=== PATIENT | female | born 2000 | race Two or more races ===

== ENCOUNTER 2021-11-26 23:12 | Emergency (ER) | payer OTHER ==
[~2021-11-26] VITALS: Ht 172.7 cm; Wt 98.0 kg
[2021-11-26 23:33] VITALS: BP 126/76
[2021-11-27 02:45] LABS: Urine Bacteria FEW /hpf (None Seen); Urine Blood Negative /uL (Negative); Urine Specific Gravity 1.008 (1.001-1.035); Urine WBC 3 /hpf (0 - 5)
== END 2021-11-27 04:58 | disposition left against medical advice (07) ==
LOC: ER 23:15
DX: S42.411A Displaced simple supracondylar fracture without intercondylar fracture of right humerus, initial encounter for closed fracture (principal); S46.911A Strain of unspecified muscle, fascia and tendon at shoulder and upper arm level, right arm, initial encounter; Z53.29 Procedure and treatment not carried out because of patient's decision for other reasons; V43.62XA Car passenger injured in collision with other type car in traffic accident, initial encounter; Y93.89 Activity, other specified; Y92.410 Unspecified street and highway as the place of occurrence of the external cause; Y99.8 Other external cause status
CPT/HCPCS: 70450; 71250; 72125; 73080; 73110; 73130; 74176; 81001

== ENCOUNTER → 2022-07-11 | Outpatient (CLI) | payer BC ==
[2022-07-11 09:06] LABS: Basophils # (auto) 0 10 ^3/uL (0-0.2); Basophils % (auto) 0.1 % (0.0-2.0); Eosinophils # (auto) 0.1 10 ^3/uL (0-0.8); Eosinophils % (auto) 1.5 % (0.0-7.0); Hematocrit 34.7 % (36.0-46.0); Hemoglobin 11.6 g/dL (12.2-16.2); Lymphocytes # (auto) 1.1 10 ^3/uL (0.4-5.4); Lymphocytes % (auto) 13.5 % (10.0-50.0); Mean Corpuscular Hemoglobin 29.3 pg (28.0-32.0); Mean Corpuscular Hgb Conc. 33.3 g/dL (32.0-36.0); Mean Corpuscular Volume 88.1 fL (80.0-100.0); Monocytes # (auto) 0.8 10 ^3/uL (0-1.3); Monocytes % (auto) 8.9 % (0.0-12.0); Neutrophils # (auto) 6.5 10 ^3/uL (1.6-8.6); Nucleated Red Blood Cells % 0.1 %; Red Blood Cells 3.94 10^6/uL (4.0-5.20); Red Cell Distribution Width 13.6 % (11.8-14.3); White Blood Cell 8.5 10^3/uL (4.4-10.8)
== END | disposition home or self-care (01) ==
LOC: LAB 08:34
PROVIDERS: ATTEND Obstetrics & Gynecology
DX: Z34.00 Encounter for supervision of normal first pregnancy, unspecified trimester (principal); Z3A.00 Weeks of gestation of pregnancy not specified
CPT/HCPCS: 36415; 82951; 83036; 85025

== ENCOUNTER 2022-07-24 13:10 | Observation (INO) | payer BC ==
[~2022-07-24] VITALS: Ht 172.7 cm; Wt 115.7 kg
== END 2022-07-24 15:30 | disposition home or self-care (01) ==
LOC: UNDOADMOB 13:10 → LDRP 13:10
PROVIDERS: ADMIT Obstetrics & Gynecology; ATTEND Obstetrics & Gynecology
DX: O24.419 Gestational diabetes mellitus in pregnancy, unspecified control (principal); Z3A.31 31 weeks gestation of pregnancy
CPT/HCPCS: 59025; 76818; 81002; 82948; 82962; 94760; G0378

== ENCOUNTER 2022-07-27 13:55 | Observation (INO) | payer BC ==
[2022-07-27] MEDS ORDERED: PREN-129 OR (14:21)
== END 2022-07-27 15:14 | disposition home or self-care (01) ==
LOC: LDRP 13:55
PROVIDERS: ADMIT Obstetrics & Gynecology; ATTEND Obstetrics & Gynecology
DX: O10.913 Unspecified pre-existing hypertension complicating pregnancy, third trimester (principal); O24.419 Gestational diabetes mellitus in pregnancy, unspecified control; Z3A.31 31 weeks gestation of pregnancy
CPT/HCPCS: 59025; 76818; 81002; 82962; G0378

== ENCOUNTER 2022-08-02 09:38 | Observation (INO) | payer BC ==
[~2022-08-02 09:38] MED LIST: PREN-129 OR
== END 2022-08-02 12:48 | disposition home or self-care (01) ==
LOC: LDRP 09:38 → UNDOADMOB 09:38 → LDRP 09:51
PROVIDERS: ADMIT Obstetrics & Gynecology; ATTEND Obstetrics & Gynecology
DX: O24.419 Gestational diabetes mellitus in pregnancy, unspecified control (principal); O10.913 Unspecified pre-existing hypertension complicating pregnancy, third trimester; Z3A.32 32 weeks gestation of pregnancy
CPT/HCPCS: 59025; 76818; 81002; 82948; 82962; 94760; G0378

== ENCOUNTER 2022-08-09 10:15 | Observation (INO) | payer BC | END 2022-08-09 12:24 | disposition home or self-care (01) | LOC: LDRP 10:15 | PROVIDERS: ADMIT Obstetrics & Gynecology; ATTEND Obstetrics & Gynecology | DX: O24.419 Gestational diabetes mellitus in pregnancy, unspecified control (principal); O10.913 Unspecified pre-existing hypertension complicating pregnancy, third trimester; Z3A.33 33 weeks gestation of pregnancy | CPT/HCPCS: 59025; 76818; 81002; 82948; 82962; 94760; G0378 ==

== ENCOUNTER 2022-08-13 10:47 | Observation (INO) | payer BC | END 2022-08-13 12:28 | disposition home or self-care (01) | LOC: LDRP 10:47 → UNDOADMOB 10:47 → LDRP 11:40 → UNDODISOB 12:28 | PROVIDERS: ADMIT Obstetrics & Gynecology; ATTEND Obstetrics & Gynecology | DX: O24.419 Gestational diabetes mellitus in pregnancy, unspecified control (principal); O36.8330 Maternal care for abnormalities of the fetal heart rate or rhythm, third trimester, not applicable or unspecified; Z3A.34 34 weeks gestation of pregnancy | CPT/HCPCS: 59025; 76818; 81002; 82948; 82962; 94760; G0378 ==

== ENCOUNTER 2022-08-16 11:05 | Observation (INO) | payer BC ==
[2022-08-16] MEDS ORDERED: PREN-129 OR (12:53)
[2022-08-16] MEDS ORDERED: METF-929 PO (12:53)
== END 2022-08-16 13:12 | disposition home or self-care (01) ==
LOC: LDRP 11:05 → UNDOADMOB 11:05 → LDRP 11:21 → UNDODISOB 13:12
PROVIDERS: ADMIT Obstetrics & Gynecology; ATTEND Obstetrics & Gynecology
DX: O24.419 Gestational diabetes mellitus in pregnancy, unspecified control (principal); O62.9 Abnormality of forces of labor, unspecified; O26.893 Other specified pregnancy related conditions, third trimester; H53.8 Other visual disturbances; Z3A.34 34 weeks gestation of pregnancy; Z79.84 Long term (current) use of oral hypoglycemic drugs
CPT/HCPCS: 59025; 76818; 81002; 82948; 82962; 94760; G0378

== ENCOUNTER 2022-08-20 11:24 | Observation (INO) | payer BC ==
[~2022-08-20 11:24] MED LIST changes: +METF-929 PO
[2022-08-20] MEDS ORDERED: PREN-96 PO (13:01)
== END 2022-08-20 13:17 | disposition home or self-care (01) ==
LOC: UNDOADMOB 11:24 → LDRP 11:24 → UNDODISOB 13:17
PROVIDERS: ADMIT Obstetrics & Gynecology; ATTEND Obstetrics & Gynecology
DX: O24.419 Gestational diabetes mellitus in pregnancy, unspecified control (principal); O26.893 Other specified pregnancy related conditions, third trimester; R10.9 Unspecified abdominal pain; O99.891 Other specified diseases and conditions complicating pregnancy; M54.9 Dorsalgia, unspecified; Z3A.35 35 weeks gestation of pregnancy
CPT/HCPCS: 59025; 76818; 81002; 82948; 94760; G0378

== ENCOUNTER 2022-08-23 11:16 | Observation (INO) | payer BC ==
[~2022-08-23 11:16] MED LIST changes: +PREN-96 PO
[2022-08-23 12:20] LABS: Basophils # (auto) 0 10 ^3/uL (0-0.2); Eosinophils # (auto) 0.1 10 ^3/uL (0-0.8); Lymphocytes # (auto) 1.1 10 ^3/uL (0.4-5.4); Monocytes # (auto) 0.7 10 ^3/uL (0-1.3); Nucleated Red Blood Cells % 0.1 %
[2022-08-23 12:22] LABS: Basophils % (auto) 0.2 % (0.0-2.0); Eosinophils % (auto) 1.3 % (0.0-7.0); Hematocrit 34.4 % (36.0-46.0); Hemoglobin 11.2 g/dL (12.2-16.2); Mean Corpuscular Hemoglobin 27.2 pg (28.0-32.0); Mean Corpuscular Hgb Conc. 32.4 g/dL (32.0-36.0); Monocytes % (auto) 8.8 % (0.0-12.0); Neutrophils % (auto) 75.7 % (37.0-80.0); Red Cell Distribution Width 14.9 % (11.8-14.3)
[2022-08-23 12:27] LABS: INR 0.93 (0.9-1.15); Partial Thromboplastin Time 28.4 sec (24.6-33.4)
[2022-08-23 12:30] LABS: Urine Bacteria FEW /hpf (None Seen); Urine Blood Negative /uL (Negative); Urine Specific Gravity 1.014 (1.001-1.035); Urine WBC 6 /hpf (0 - 5)
[2022-08-23 12:40] LABS: Potassium 3.7 mmol/L (3.5-5.1)
[2022-08-23 12:47] LABS: Albumin 2.6 g/dL (3.4-5.0); BUN/Creatinine Ratio 9.1 (10.0-20.0); Bilirubin, Total 0.3 mg/dL (0.2-1.0); Calcium 8.6 mg/dL (8.5-10.1); Total Protein 6.7 g/dL (6.4-8.2)
[2022-08-23 12:51] LABS: Alcohol, Urine < 3.0 mg/dL (0-10); Amphetamine Screen, Urine NEGATIVE (NEGATIVE); Barbiturate Scree,Urine NEGATIVE (NEGATIVE); Benzodiazephine Screen, Urine NEGATIVE (NEGATIVE); Cannabinoid Screen, Urine NEGATIVE (NEGATIVE); Cocaine Screen, Urine NEGATIVE (NEGATIVE); Opiate Scree,Urine NEGATIVE (NEGATIVE); Phencyclidine Screen, Urine NEGATIVE (NEGATIVE)
[2022-08-23 12:54] LABS: Protein, Urine 57.7 mg/dL (0.0-11.9)
[2022-08-23] MEDS ORDERED: BETAMETHASONE ACET (30mg/5ml) 5ml Vial 6mg/ml IM ONE (13:30)
== END 2022-08-23 13:47 | disposition home or self-care (01) ==
LOC: LDRP 11:16 → UNDOADMOB 11:16 → LDRP 11:21 → UNDODISOB 13:47
PROVIDERS: ADMIT Obstetrics & Gynecology; ATTEND Obstetrics & Gynecology
DX: O13.3 Gestational [pregnancy-induced] hypertension without significant proteinuria, third trimester (principal); O24.419 Gestational diabetes mellitus in pregnancy, unspecified control; O62.9 Abnormality of forces of labor, unspecified; Z3A.35 35 weeks gestation of pregnancy; Z79.899 Other long term (current) drug therapy
CPT/HCPCS: 36415; 59025; 76818; 80053; 80307; 81001; 81002; 82570; 82948; 82962; 84156; 84550; 85025; 85379; 85610; 85730; 94760; 96372; G0378; J0702

== ENCOUNTER 2022-08-24 14:15 | Observation (INO) | payer BC ==
[~2022-08-24] VITALS: Ht 172.7 cm; Wt 95.3 kg
[2022-08-24] MEDS ORDERED: BETAMETHASONE ACET (30mg/5ml) 5ml Vial 6mg/ml IM ONE (14:30)
== END 2022-08-24 16:12 | disposition home or self-care (01) ==
LOC: LDRP 14:15
PROVIDERS: ADMIT Obstetrics & Gynecology; ATTEND Obstetrics & Gynecology
DX: O13.3 Gestational [pregnancy-induced] hypertension without significant proteinuria, third trimester (principal); O24.419 Gestational diabetes mellitus in pregnancy, unspecified control; O36.8330 Maternal care for abnormalities of the fetal heart rate or rhythm, third trimester, not applicable or unspecified; Z3A.35 35 weeks gestation of pregnancy
CPT/HCPCS: 59025; 81002; 82948; 82962; 94760; 96372; G0378

== ENCOUNTER 2022-08-26 03:04 | Observation (INO) | payer BC ==
[~2022-08-26] VITALS: Ht 8 cm; Wt 113.4 kg
[2022-08-26] MEDS ORDERED: PHISODERM TOP SOLN 240ML BTL TOP PRN (05:00)
[2022-08-26] MEDS ORDERED: DERMOPLAST 60ML BOTTLE TOP PRN (05:00)
[2022-08-26] MEDS ORDERED: LIDOCAINE 2%HCL (LOCAL ANESTH.) INJ 20ML MDV IJ PRN (05:00)
[2022-08-26] MEDS ORDERED: WITCH HAZEL-GLYCERIN PAD TOP PRN (05:00)
[2022-08-26] MEDS ORDERED: LACTATED RINGER'S 1,000 ML IV SCH (05:00)
[2022-08-26] MEDS ORDERED: PROMETHAZINE HCL 25 MG/ML 1ML IV PRN (05:00)
[2022-08-26] MEDS ORDERED: BUTORPHANOL TARTRATE 2 MG/1 ML VIAL IV PRN ×2 (05:00)
[2022-08-26] MEDS ORDERED: PENICILLIN G POT 5MIL/D5 50ML 50 ML IV ONE (05:00)
[2022-08-26] MEDS ORDERED: PENICILLIN G POTASSIUM 2,500,000 UNITS in D5W 5% 50 ML IV SCH (09:00)
== END 2022-08-26 04:27 | disposition home or self-care (01) ==
LOC: LDRP 03:04
PROVIDERS: ADMIT Obstetrics & Gynecology; ATTEND Obstetrics & Gynecology
DX: O26.893 Other specified pregnancy related conditions, third trimester (principal); R07.89 Other chest pain; R06.02 Shortness of breath; Z3A.36 36 weeks gestation of pregnancy; Z79.899 Other long term (current) drug therapy
CPT/HCPCS: 59025; 81002; 82962; 94760; G0378; J7060

== ENCOUNTER 2022-08-28 11:35 | Observation (INO) | payer BC | END 2022-08-28 13:50 | disposition home or self-care (01) | LOC: LDRP 11:35 | PROVIDERS: ADMIT Obstetrics & Gynecology; ATTEND Obstetrics & Gynecology | DX: O24.419 Gestational diabetes mellitus in pregnancy, unspecified control (principal); O13.3 Gestational [pregnancy-induced] hypertension without significant proteinuria, third trimester; Z3A.36 36 weeks gestation of pregnancy | CPT/HCPCS: 59025; 76818; 81002; 82948; 82962; 94760; G0378 ==

== ENCOUNTER → 2022-08-28 | Outpatient (CLI) | payer BC ==
[2022-08-28 11:59] LABS: Basophils # (auto) 0 10 ^3/uL (0-0.2); Eosinophils # (auto) 0.1 10 ^3/uL (0-0.8); Hematocrit 36.3 % (36.0-46.0); Lymphocytes # (auto) 1.6 10 ^3/uL (0.4-5.4); Mean Corpuscular Hemoglobin 26.6 pg (28.0-32.0); Mean Corpuscular Hgb Conc. 31.8 g/dL (32.0-36.0); Monocytes # (auto) 0.9 10 ^3/uL (0-1.3); Red Blood Cells 4.35 10^6/uL (4.0-5.20); White Blood Cell 9.9 10^3/uL (4.4-10.8)
[2022-08-28 12:01] LABS: Basophils % (auto) 0.1 % (0.0-2.0); Eosinophils % (auto) 0.7 % (0.0-7.0); Hemoglobin 11.6 g/dL (12.2-16.2); Lymphocytes % (auto) 16.2 % (10.0-50.0); Mean Corpuscular Volume 83.6 fL (80.0-100.0); Monocytes % (auto) 9.4 % (0.0-12.0); Neutrophils # (auto) 7.3 10 ^3/uL (1.6-8.6); Neutrophils % (auto) 73.6 % (37.0-80.0); Nucleated Red Blood Cells % 0.2 %; Red Cell Distribution Width 14.7 % (11.8-14.3)
[2022-08-29 05:08] LABS: RPR Non Reactive (Non Reactive)
== END | disposition home or self-care (01) ==
LOC: LAB 10:55
PROVIDERS: ATTEND Obstetrics & Gynecology
DX: Z34.80 Encounter for supervision of other normal pregnancy, unspecified trimester (principal); Z3A.00 Weeks of gestation of pregnancy not specified
CPT/HCPCS: 36415; 84112; 85025; 86592

== ENCOUNTER 2022-09-02 10:00 | Inpatient (IN) | payer BC ==
[~2022-09-02] VITALS: Ht 172.7 cm; Wt 119.3 kg
[2022-09-02 11:32] LABS: Basophils # (auto) 0 10 ^3/uL (0-0.2); Eosinophils # (auto) 0.1 10 ^3/uL (0-0.8); Hemoglobin 11.8 g/dL (12.2-16.2); Lymphocytes # (auto) 1.4 10 ^3/uL (0.4-5.4); Mean Corpuscular Hemoglobin 26.7 pg (28.0-32.0); Mean Corpuscular Hgb Conc. 32.2 g/dL (32.0-36.0); Monocytes # (auto) 0.7 10 ^3/uL (0-1.3); Nucleated Red Blood Cells % 0.1 %
[2022-09-02 11:34] LABS: Basophils % (auto) 0.1 % (0.0-2.0); Eosinophils % (auto) 1.2 % (0.0-7.0); Hematocrit 36.6 % (36.0-46.0); Lymphocytes % (auto) 18.9 % (10.0-50.0); Monocytes % (auto) 9.4 % (0.0-12.0); Neutrophils # (auto) 5.4 10 ^3/uL (1.6-8.6); Neutrophils % (auto) 70.4 % (37.0-80.0); Red Blood Cells 4.41 10^6/uL (4.0-5.20); Red Cell Distribution Width 15.4 % (11.8-14.3); White Blood Cell 7.7 10^3/uL (4.4-10.8)
[2022-09-02 11:46] LABS: Albumin 2.6 g/dL (3.4-5.0); Calcium 8.8 mg/dL (8.5-10.1); Potassium 3.7 mmol/L (3.5-5.1)
[2022-09-02 11:49] LABS: Protein, Urine 30.7 mg/dL (0.0-11.9)
[2022-09-02 11:50] LABS: BUN/Creatinine Ratio 8.7 (10.0-20.0); Bilirubin, Total 0.3 mg/dL (0.2-1.0); Total Protein 6.8 g/dL (6.4-8.2); Uric Acid 7.4 mg/dL (2.6-6.0)
[2022-09-02 11:54] LABS: Urine Bacteria NONE SEEN /hpf (None Seen); Urine Blood Negative /uL (Negative); Urine Specific Gravity 1.006 (1.001-1.035); Urine WBC 2 /hpf (0 - 5)
[2022-09-02 11:54] LABS: INR 0.91 (0.9-1.15); Partial Thromboplastin Time 28.4 sec (24.6-33.4)
== END 2022-09-02 14:38 | disposition short-term general hospital (02) | DRG 833 ==
LOC: UNDOADMOB 10:00 → LDRP 10:00 → UNDOADMOB 10:19 → INTOOBSV 12:38 → LDRP 12:38 → OBSVTOIN 12:38 → UNDODISIN 14:38
PROVIDERS: ADMIT Obstetrics & Gynecology; ATTEND Obstetrics & Gynecology
DX: O24.419 Gestational diabetes mellitus in pregnancy, unspecified control (principal); O13.3 Gestational [pregnancy-induced] hypertension without significant proteinuria, third trimester; Z3A.37 37 weeks gestation of pregnancy
CPT/HCPCS: 36415; 59025; 76818; 80053; 81001; 81002; 82570; 82948; 82962; 84156; 84550; 85025; 85610; 85730; 94760; G0378

== ENCOUNTER 2024-03-11 08:47 | Observation (INO) | payer MEDICAID ==
[2024-03-18] MEDS ORDERED: ASPI1TAB20 PO (09:51)
[2024-03-18 10:12] LABS: Basophils # (auto) 0 10 ^3/uL (0-0.2); Basophils % (auto) 0.2 % (0.0-2.0); Eosinophils # (auto) 0.1 10 ^3/uL (0-0.8); Eosinophils % (auto) 1.4 % (0.0-7.0); Hematocrit 36.4 % (36.0-46.0); Hemoglobin 11.8 g/dL (12.2-16.2); Lymphocytes # (auto) 1.4 10 ^3/uL (0.4-5.4); Lymphocytes % (auto) 15.9 % (10.0-50.0); Mean Corpuscular Hemoglobin 28.6 pg (28.0-32.0); Mean Corpuscular Hgb Conc. 32.3 g/dL (32.0-36.0); Mean Corpuscular Volume 88.7 fL (80.0-100.0); Monocytes # (auto) 0.6 10 ^3/uL (0-1.3); Monocytes % (auto) 7.2 % (0.0-12.0); Neutrophils # (auto) 6.6 10 ^3/uL (1.6-8.6); Neutrophils % (auto) 75.3 % (37.0-80.0); Platelet Count (auto) 272 10^3/uL (140-450); Red Blood Cells 4.11 10^6/uL (4.0-5.20); Red Cell Distribution Width 14.1 % (11.8-14.3); White Blood Cell 8.8 10^3/uL (4.4-10.8)
[2024-03-18 10:24] LABS: Alanine Aminotransferase 22 U/L (7-40); Alkaline Phosphatase 83 U/L (46-116); Anion Gap 8 (5-15); Aspartate Aminotransferase 31 U/L (13-40); Calcium 9.8 mg/dL (8.7-10.4); Carbon Dioxide 25 mmol/L (20-31); Chloride 105 mmol/L (98-107); Glucose 94 mg/dL (74-106); Potassium 4.1 mmol/L (3.5-5.1); Sodium 138 mmol/L (136-145)
[2024-03-18 10:25] LABS: Bilirubin, Total 0.4 mg/dL (0.2-1.0); Total Protein 6.7 g/dL (5.7-8.2)
[2024-03-18 10:39] LABS: BUN/Creatinine Ratio 7.6 (10.0-20.0); Blood Urea Nitrogen < 5 mg/dL (9-23)
[2024-03-18 11:01] LABS: INR 1.02 (0.9-1.15); Partial Thromboplastin Time 27.9 SEC (24.5-34.5); Prothrombin Time 10.8 sec (9.3-11.8)
[2024-03-18 11:06] LABS: Protein, Urine 36.7 mg/dL (1-14)
[2024-03-18 11:09] LABS: Creatinine, Urine 139.32 mg/dL (30.0-125.0); Urine Protein/Creatinine Ratio 0.26
[2024-03-18 11:23] LABS: Uric Acid 6.7 mg/dL (3.1-7.8)
[2024-03-18 11:25] LABS: Urine Bacteria FEW /hpf (None Seen); Urine Blood Negative /uL (Negative); Urine Clarity Clear (Clear); Urine Color Light-Yellow (Yellow); Urine Mucus FEW (None Seen); Urine Protein, UAD TRACE (Negative); Urine Specific Gravity 1.015 (1.001-1.035); Urine Squamous Epithelial Cell FEW /hpf (<5); Urine Urobilinogen Normal (Negative); Urine WBC 1 /hpf (0 - 5); Urine pH 6.5 (5.0-9.0)
--- NOTE | 2024-03-18 19:45 | DVHDS2 ---
Physician Discharge Progress N Final Diagnosis: testing for CHTN/GDM, A1 Operations or Procedures: Operations or Procedures 23yo IUP@30.6wks, +FM, denies UCs/LOF/VB/BAÑUELOS/vision changes/RUQ pain. VSS, normotensive UA wnl NST reactive (verified by 2 RNs) FKC/PTL/PreE precautions reviewed Laboratory Tests Test 03/18/24 09:46 03/18/24 09:50 Range/Units White Blood Count 8.8 4.4-10.8 10^3/uL Red Blood Count 4.11 4.0-5.20 10^6/uL Hemoglobin 11.8 L 12.2-16.2 g/dL Hematocrit 36.4 36.0-46.0 % Mean Corpuscular Volume 88.7 80.0-100.0 fL Mean Corpuscular Hemoglobin 28.6 28.0-32.0 pg Mean Corpuscular Hemoglobin Concent 32.3 32.0-36.0 g/dL Red Cell Distribution Width 14.1 11.8-14.3 % Platelet Count 272 140-450 10^3/uL Mean Platelet Volume 8.4 6.9-10.8 fL Neutrophils (%) (Auto) 75.3 37.0-80.0 % Lymphocytes (%) (Auto) 15.9 10.0-50.0 % Monocytes (%) (Auto) 7.2 0.0-12.0 % Eosinophils (%) (Auto) 1.4 0.0-7.0 % Basophils (%) (Auto) 0.2 0.0-2.0 % Neutrophils # (Auto) 6.6 1.6-8.6 10 ^3/uL Lymphocytes # (Auto) 1.4 0.4-5.4 10 ^3/uL Monocytes # (Auto) 0.6 0-1.3 10 ^3/uL Eosinophils # (Auto) 0.1 0-0.8 10 ^3/uL Basophils # (Auto) 0 0-0.2 10 ^3/uL Nucleated Red Blood Cells 0.0 % Prothrombin Time 10.8 9.3-11.8 sec Prothrombin Time INR 1.02 0.9-1.15 Activated Partial Thromboplast Time 27.9 24.5-34.5 SEC Sodium Level 138 136-145 mmol/L Potassium Level 4.1 3.5-5.1 mmol/L Chloride Level 105 98-107 mmol/L Carbon Dioxide Level 25 20-31 mmol/L Anion Gap 8 5-15 Blood Urea Nitrogen < 5 L 9-23 mg/dL Creatinine 0.66 0.550-1.02 mg/dL Glomerular Filtration Rate Calc 125 >90 mL/min BUN/Creatinine Ratio 7.6 L 10.0-20.0 Serum Glucose 94 74-106 mg/dL Uric Acid 6.7 3.1-7.8 mg/dL Calcium Level 9.8 8.7-10.4 mg/dL Total Bilirubin 0.4 0.2-1.0 mg/dL Aspartate Amino Transferase (AST) 31 13-40 U/L Alanine Aminotransferase (ALT) 22 7-40 U/L Alkaline Phosphatase 83 46-116 U/L Total Protein 6.7 5.7-8.2 g/dL Albumin 4.0 3.2-4.8 g/dL Urine Color Light-yellow Yellow Urine Clarity Clear Clear Urine pH 6.5 5.0-9.0 Urine Specific [place] 1.015 1.001-1.035 Urine Protein Trace H Negative Urine Ketones Negative Negative Urine Blood Negative Negative /uL Urine Nitrite Negative Negative Urine Bilirubin Negative Negative Urine Urobilinogen Normal Negative mg/dL Urine Leukocyte Esterase Negative Negative /uL Urine RBC None seen 0 - 4 /hpf Urine WBC 1 0 - 5 /hpf Urine Squamous Epithelial Cells Few <5 /hpf Urine Bacteria Few H None Seen /hpf Urine Mucus Few None Seen Urine Creatinine 139.32 H 30.0-125.0 mg/dL Urine Protein/Creatinine Ratio 0.26 Urine Glucose Normal Normal mg/dL Urine Total Protein 36.7 H 1-14 mg/dL Condition on Discharge: Stable Disposition: Home Discharge Instructions: Diet: Consistent carbohydrate Activity: No Restrictions, As Tolerated Medications: see med list Follow Up Care: Specialist: f/u in 1wk Discharge Statement: "Patient was advised to return to the ER or call 911 if any headaches, dizziness, shortness of breath, chest pain, abdominal pain, bleeding, fevers, or worsening of medical condition. Patient was counseled about treatment plan, medications, possible side effects, patientverbalized understanding. All questions were answered to the best of my ability. This discharge took greater then 30 minutes in planning, reviewing documentation, counseling the patient, and discussing with other team members." [address] Mar 18, 2024 19:45
== END 2024-03-18 12:05 | disposition home or self-care (01) ==
LOC: LDRP 03-18 09:23 → UNDOADMOB 03-18 09:23 → LDRP 03-18 09:31 → UNDODISOB 03-18 12:05
PROVIDERS: ADMIT Obstetrics & Gynecology; ATTEND Obstetrics & Gynecology
DX: O24.419 Gestational diabetes mellitus in pregnancy, unspecified control (principal); O13.3 Gestational [pregnancy-induced] hypertension without significant proteinuria, third trimester; Z3A.30 30 weeks gestation of pregnancy; Z79.899 Other long term (current) drug therapy; Z86.2 Personal history of diseases of the blood and blood-forming organs and certain disorders involving the immune mechanism
CPT/HCPCS: 36415; 59025; 80053; 81001; 81002; 82570; 84156; 84550; 85025; 85610; 85730; 94760; G0378

== ENCOUNTER 2024-03-18 05:18 | Observation (INO) | payer MEDICAID ==
[~2024-03-18] VITALS: Ht 172.7 cm; Wt 117.9 kg
[2024-03-18] MEDS ORDERED: ASPI1TAB20 PO (09:51)
[2024-03-25] MEDS: InsuLIN REG 1unit/0.01ml Soln (100units/ml) SC ONE (09:58)
--- NOTE | 2024-03-26 16:05 | DVHDS2 ---
Physician Discharge Progress N Final Diagnosis: gdm,chtn Operations or Procedures: Operations or Procedures nst,sono Condition on Discharge: Good Disposition: Home Discharge Instructions: Diet: Consistent carbohydrate, Cardiac 2g Na,low cholest Activity: Light activity Medications: na Follow Up Care: Specialist: 3d Discharge Statement: "Patient was advised to return to the ER or call 911 if any headaches, dizziness, shortness of breath, chest pain, abdominal pain, bleeding, fevers, or worsening of medical condition. Patient was counseled about treatment plan, medications, possible side effects, patientverbalized understanding. All questions were answered to the best of my ability. This discharge took greater then 30 minutes in planning, reviewing documentation, counseling the patient, and discussing with other team members." JOAQUIM MOSELEY DO Mar 26, 2024 16:05
== END 2024-03-25 10:49 | disposition home or self-care (01) ==
LOC: LDRP 03-25 09:07 → EDUNIT# 03-25 09:07
PROVIDERS: ADMIT Obstetrics & Gynecology; ATTEND Obstetrics & Gynecology
DX: O13.3 Gestational [pregnancy-induced] hypertension without significant proteinuria, third trimester (principal); O24.419 Gestational diabetes mellitus in pregnancy, unspecified control; Z3A.31 31 weeks gestation of pregnancy; Z79.899 Other long term (current) drug therapy; Z98.890 Other specified postprocedural states
CPT/HCPCS: 59025; 81002; 82948; 82962; 94760; 96372; G0378; J1815

== ENCOUNTER 2024-03-25 09:26 | Observation (INO) | payer MEDICAID ==
[~2024-03-25 09:26] MED LIST changes: +ASPI1TAB20 PO
--- NOTE | 2024-03-29 10:08 | DVH ---
BIOPHYSICAL PROFILE HISTORY: GDMA2/CHTN TECHNIQUE: Multiple transabdominal real-time grayscale sonographic images through the gravid uterus of the fetus with duplex Doppler color flow and M-mode spectral analysis FINDINGS: BIOPHYSICAL PROFILE: breathing score: 2 movement score: 2 tone score: 2 Quantitative KATERYNA score: 2 (KATERYNA: 14.7 Cm.) Total score: 8/8 The fetus is in cephalic position. Posterior placenta. IMPRESSION: 1. Biophysical profile score: 8/8.
--- NOTE | 2024-03-29 11:46 | DVHDS2 ---
Physician Discharge Progress N Final Diagnosis: GDMA2 Gestational HTN Secondary Diagnosis: Encounter for surveillance Operations or Procedures: Operations or Procedures NST/BPP/KATERYNA Accucheck all WNL Commentary: Commentary PATIENT: BETH SOTELO ACCT: [id number] UNIT: [id number] : 2000 LOC: [facility] ROOM / BED: TRIAGE2 / A AGE / SEX: 23 / F ADM STATUS: ADM IN SERVICE [id number] ORDERING PHYSICIAN: DAVID TIPTON DO PROCEDURE(s): BPP - BIOPHYSICAL PROFILE REASON: GDMA2/CHTN ORDER NUMBER(s): [id number], ACCESSION NUMBER(s): [id number] BIOPHYSICAL PROFILE HISTORY: GDMA2/CHTN TECHNIQUE: Multiple transabdominal real-time grayscale sonographic images through the gravid uterus of the fetus with duplex Doppler color flow and M-mode spectral analysis FINDINGS: BIOPHYSICAL PROFILE: breathing score: 2 movement score: 2 tone score: 2 Quantitative KATERYNA score: 2 (KATERYNA: 14.7 Cm.) Total score: 8/8 The fetus is in cephalic position. Posterior placenta. IMPRESSION: 1. Biophysical profile score: 8/8. Condition on Discharge: Stable Disposition: Home Discharge Instructions: Diet: Consistent carbohydrate Activity: No Restrictions, As Tolerated Follow Up/Referral: Follow up at 9:00 am in [facility] for NST/BPP Medications: na Follow Up Care: Discharge Statement: "Patient was advised to return to the ER or call 911 if any headaches, dizziness, shortness of breath, chest pain, abdominal pain, bleeding, fevers, or worsening of medical condition. Patient was counseled about treatment plan, medications, possible side effects, patientverbalized understanding. All questions were answered to the best of my ability. This discharge took greater then 30 minutes in planning, reviewing documentation, counseling the patient, and discussing with other team members." DAVID TIPTON DO Mar 29, 2024 11:46
== END 2024-03-29 10:40 | disposition home or self-care (01) ==
LOC: UNDOADMOB 03-29 09:20 → LDRP 03-29 09:20 → UNDODISOB 03-29 10:40
PROVIDERS: ADMIT Obstetrics & Gynecology; ATTEND Obstetrics & Gynecology
DX: O24.419 Gestational diabetes mellitus in pregnancy, unspecified control (principal); O13.3 Gestational [pregnancy-induced] hypertension without significant proteinuria, third trimester; Z79.899 Other long term (current) drug therapy; Z3A.32 32 weeks gestation of pregnancy
CPT/HCPCS: 59025; 76818; 81002; 82948; 82962; 94760; G0378

== ENCOUNTER 2024-04-01 09:17 | Observation (INO) | payer MEDICAID ==
--- NOTE | 2024-04-07 09:36 | DVHDS2 ---
Physician Discharge Progress N Final Diagnosis: gdm Operations or Procedures: Operations or Procedures t,sono,nst Condition on Discharge: Good Disposition: Home Discharge Instructions: Diet: Consistent carbohydrate Activity: No Restrictions, As Tolerated Medications: na Follow Up Care: Specialist: 3d Discharge Statement: "Patient was advised to return to the ER or call 911 if any headaches, dizziness, shortness of breath, chest pain, abdominal pain, bleeding, fevers, or worsening of medical condition. Patient was counseled about treatment plan, medications, possible side effects, patientverbalized understanding. All questions were answered to the best of my ability. This discharge took greater then 30 minutes in planning, reviewing documentation, counseling the patient, and discussing with other team members." JOAQUIM MOSELEY DO Apr 07, 2024 09:36
== END 2024-04-01 12:26 | disposition home or self-care (01) ==
LOC: EDUNIT# → UNDOADMOB 09:17 → LDRP 09:17
PROVIDERS: ADMIT Obstetrics & Gynecology; ATTEND Obstetrics & Gynecology
DX: O24.419 Gestational diabetes mellitus in pregnancy, unspecified control (principal); O13.3 Gestational [pregnancy-induced] hypertension without significant proteinuria, third trimester; Z3A.32 32 weeks gestation of pregnancy; Z79.899 Other long term (current) drug therapy
CPT/HCPCS: 59025; 81002; 82948; 94760; G0378

== ENCOUNTER 2024-04-05 06:06 | Observation (INO) | payer MEDICAID ==
--- NOTE | 2024-04-05 10:46 | DVH ---
BIOPHYSICAL PROFILE HISTORY: CHTN/GDMA2 TECHNIQUE: Multiple transabdominal real-time grayscale sonographic images through the gravid uterus of the fetus with duplex Doppler color flow and M-mode spectral analysis FINDINGS: BIOPHYSICAL PROFILE: breathing score: 2 movement score: 2 tone score: 2 Quantitative KATERYNA score: 2 (KATERYNA: 12.8 Cm.) Total score: 8 The cervix not well visualized. Single live fetus in fundal presentation. heart rate 126 beats per minute. IMPRESSION: Biophysical profile score: 8
--- NOTE | 2024-04-05 12:28 | DVHDS2 ---
Physician Discharge Progress N Final Diagnosis: Chronic HTN GDMA2 Secondary Diagnosis: Encounter for surveillance Operations or Procedures: Operations or Procedures NST/BPP/KATERYNA BP check Accucheck All WNL Condition on Discharge: Stable Disposition: Home Discharge Instructions: Diet: Consistent carbohydrate Activity: No Restrictions, As Tolerated Follow Up/Referral: as scheduled. Medications: N/A Follow Up Care: Discharge Statement: "Patient was advised to return to the ER or call 911 if any headaches, dizziness, shortness of breath, chest pain, abdominal pain, bleeding, fevers, or worsening of medical condition. Patient was counseled about treatment plan, medications, possible side effects, patientverbalized understanding. All questions were answered to the best of my ability. This discharge took greater then 30 minutes in planning, reviewing documentation, counseling the patient, and discussing with other team members." DAVID TIPTON DO Apr 05, 2024 12:28
== END 2024-04-05 11:15 | disposition home or self-care (01) ==
LOC: LDRP 09:54
PROVIDERS: ADMIT Obstetrics & Gynecology; ATTEND Obstetrics & Gynecology
DX: O24.419 Gestational diabetes mellitus in pregnancy, unspecified control (principal); O13.3 Gestational [pregnancy-induced] hypertension without significant proteinuria, third trimester; Z98.890 Other specified postprocedural states; Z79.899 Other long term (current) drug therapy; Z3A.33 33 weeks gestation of pregnancy
CPT/HCPCS: 59025; 76818; 81002; 82962; 94760; G0378

== ENCOUNTER 2024-04-08 12:13 | Observation (INO) | payer MEDICAID ==
--- NOTE | 2024-04-08 13:16 | DVH ---
BIOPHYSICAL PROFILE HISTORY: CHTN TECHNIQUE: Multiple transabdominal real-time grayscale sonographic images through the gravid uterus of the fetus with duplex Doppler color flow and M-mode spectral analysis FINDINGS: BIOPHYSICAL PROFILE: breathing score: 2 movement score: 2 tone score: 2 Quantitative KATERYNA score: 2 (KATERYNA: 11.6 Cm.) Total score: 8 The cervix not well visualized. Single live fetus in cephalic presentation. heart rate 148 beats per minute. Fundal placenta without previa or abruption IMPRESSION: Biophysical profile score: 8
[2024-04-08 14:52] LABS: Basophils # (auto) 0 10 ^3/uL (0-0.2); Basophils % (auto) 0.1 % (0.0-2.0); Eosinophils # (auto) 0.1 10 ^3/uL (0-0.8); Hemoglobin 11.6 g/dL (12.2-16.2); Lymphocytes # (auto) 1.2 10 ^3/uL (0.4-5.4); Lymphocytes % (auto) 15.3 % (10.0-50.0); Mean Corpuscular Hemoglobin 28.4 pg (28.0-32.0); Mean Corpuscular Volume 85.8 fL (80.0-100.0); Monocytes # (auto) 0.7 10 ^3/uL (0-1.3); Monocytes % (auto) 9.1 % (0.0-12.0); Neutrophils # (auto) 5.9 10 ^3/uL (1.6-8.6); Neutrophils % (auto) 74.5 % (37.0-80.0); Platelet Count (auto) 266 10^3/uL (140-450); Red Blood Cells 4.08 10^6/uL (4.0-5.20); Red Cell Distribution Width 14.5 % (11.8-14.3); White Blood Cell 7.9 10^3/uL (4.4-10.8)
[2024-04-08 15:08] LABS: INR 0.97 (0.9-1.15); Partial Thromboplastin Time 27.3 SEC (24.5-34.5); Prothrombin Time 10.3 sec (9.3-11.8)
[2024-04-08 15:10] LABS: Protein, Urine 67.3 mg/dL (1-14)
[2024-04-08 15:13] LABS: Creatinine, Urine 228.67 mg/dL (30.0-125.0); Urine Protein/Creatinine Ratio 0.29
[2024-04-08 15:14] LABS: Alanine Aminotransferase 18 U/L (7-40); Albumin 3.9 g/dL (3.2-4.8); Alkaline Phosphatase 90 U/L (46-116); Anion Gap 7 (5-15); Aspartate Aminotransferase 29 U/L (13-40); Carbon Dioxide 24 mmol/L (20-31); Chloride 107 mmol/L (98-107); Glucose 90 mg/dL (74-106); Potassium 3.8 mmol/L (3.5-5.1); Sodium 138 mmol/L (136-145); Uric Acid 6.3 mg/dL (3.1-7.8)
[2024-04-08 15:15] LABS: Bilirubin, Total 0.3 mg/dL (0.2-1.0); Total Protein 6.7 g/dL (5.7-8.2)
[2024-04-08 15:24] LABS: Blood Urea Nitrogen 6 mg/dL (9-23)
[2024-04-08 15:34] LABS: Urine Bacteria FEW /hpf (None Seen); Urine Blood Negative /uL (Negative); Urine Clarity Turbid (Clear); Urine Color Yellow (Yellow); Urine Mucus FEW (None Seen); Urine Protein, UAD 1+ (Negative); Urine Specific Gravity 1.022 (1.001-1.035); Urine Squamous Epithelial Cell MOD /hpf (<5); Urine Urobilinogen 2 mg/dL (Negative); Urine WBC 3 /HPF (0-5); Urine pH 6.5 (5.0-9.0)
--- NOTE | 2024-04-08 18:13 | DVHDS2 ---
Physician Discharge Progress N Final Diagnosis: gdm,oih Operations or Procedures: Operations or Procedures nst,sono,;labs Condition on Discharge: Good Disposition: Home Discharge Instructions: Diet: Consistent carbohydrate Activity: No Restrictions, As Tolerated Medications: na Follow Up Care: Specialist: 3d Discharge Statement: "Patient was advised to return to the ER or call 911 if any headaches, dizziness, shortness of breath, chest pain, abdominal pain, bleeding, fevers, or worsening of medical condition. Patient was counseled about treatment plan, medications, possible side effects, patientverbalized understanding. All questions were answered to the best of my ability. This discharge took greater then 30 minutes in planning, reviewing documen tation, counseling the patient, and discussing with other team members." JOAQUIM MOSELEY DO Apr 08, 2024 18:13
== END 2024-04-08 14:30 | disposition home or self-care (01) ==
LOC: LDRP 12:13
PROVIDERS: ADMIT Obstetrics & Gynecology; ATTEND Obstetrics & Gynecology
DX: O24.419 Gestational diabetes mellitus in pregnancy, unspecified control (principal); O41.03X0 Oligohydramnios, third trimester, not applicable or unspecified; Z3A.33 33 weeks gestation of pregnancy; Z79.899 Other long term (current) drug therapy
CPT/HCPCS: 36415; 59025; 76818; 80053; 81001; 81002; 82570; 82948; 82962; 84156; 84550; 85025; 85610; 85730; 94760; G0378

== ENCOUNTER 2024-04-12 10:04 | Observation (INO) | payer MEDICAID ==
--- NOTE | 2024-04-12 11:01 | DVH ---
BIOPHYSICAL PROFILE HISTORY: CHTN/ GDMA2 TECHNIQUE: Multiple transabdominal real-time grayscale sonographic images through the gravid uterus of the fetus with duplex Doppler color flow and M-mode spectral analysis FINDINGS: BIOPHYSICAL PROFILE: breathing score: 2 movement score: 2 tone score: 2 Quantitative KATERYNA score: 2 (KATERYNA: 11.1 Cm.) Total score: 8 The cervix not well visualized Single live fetus in cephalic presentation. heart rate 129 beats per minute. IMPRESSION: Biophysical profile score: 8
[2024-04-12 12:17] LABS: Protein, Urine 8.2 mg/dL (1-14)
[2024-04-12 14:55] LABS: 24 Hr. Total Protein, Urine 233.7 mg/24 Hr (<149.1)
--- NOTE | 2024-04-13 15:06 | DVHDS2 ---
Physician Discharge Progress N Final Diagnosis: gdm,chtn Operations or Procedures: Operations or Procedures nst,sono Condition on Discharge: Good Disposition: Home Discharge Instructions: Diet: Consistent carbohydrate Activity: No Restrictions, As Tolerated Follow Up/Referral: Follow up on at 10:00 am for NST/BPP Medications: na Follow Up Care: Specialist: 3d Discharge Statement: "Patient was advised to return to the ER or call 911 if any headaches, dizzines s, shortness of breath, chest pain, abdominal pain, bleeding, fevers, or worsening of medical condition. Patient was counseled about treatment plan, medications, possible side effects, patientverbalized understanding. All questions were answered to the best of my ability. This discharge took greater then 30 minutes in planning, reviewing documentation, counseling the patient, and discussing with other team members." JOAQUIM MOSELEY DO Apr 13, 2024 15:06
== END 2024-04-12 11:48 | disposition home or self-care (01) ==
LOC: LDRP 10:04 → UNDOADMOB 10:04 → LDRP 10:15 → UNDODISOB 11:48
PROVIDERS: ADMIT Obstetrics & Gynecology; ATTEND Obstetrics & Gynecology
DX: O24.419 Gestational diabetes mellitus in pregnancy, unspecified control (principal); O10.913 Unspecified pre-existing hypertension complicating pregnancy, third trimester; Z98.890 Other specified postprocedural states; Z79.899 Other long term (current) drug therapy; Z3A.34 34 weeks gestation of pregnancy
CPT/HCPCS: 59025; 76818; 81002; 82948; 82962; 84156; G0378

== ENCOUNTER 2024-04-15 10:17 | Observation (INO) | payer MEDICAID ==
--- NOTE | 2024-04-15 11:36 | DVH ---
Procedure: US BIOPHYSICAL PROFILE 04/15/2024 10:59 AM Indication: GDMA2/CHTN Comparison: US BIOPHYSICAL PROFILE on DOS: 04/12/24, US BIOPHYSICAL PROFILE on DOS: 04/08/24, US BIOPHY SICAL PROFILE on DOS: 04/05/24 Technique: Sonogram of gravid uterus utilizing grayscale and color techniques. FINDINGS: Single living intrauterine gestation. Presentation: Cephalic Placenta: Posterior and fundal heart rate: 129 bpm KATERYNA: 13.8 cm, DVP: 5.2 cm Maternal cervix: Not visualized Biophysical Profile: breathing score: 2 movement score: 2 tone: 2 Quantitative KATERYNA score: 2 Total score: 8/8 IMPRESSION: 1. Single living as above. 2. Biophysical profile score: 8/8.
--- NOTE | 2024-04-15 12:38 | DVHDS2 ---
Physician Discharge Progress N Final Diagnosis: gdm Operations or Procedures: Operations or Procedures nst,sono Condition on Discharge: Good Disposition: Home Discharge Instructions: Diet: Consistent carbohydrate Activity: No Restrictions, As Tolerated Medications: na Follow Up Care: Specialist: 2d Discharge Statement: "Patient was advised to return to the ER or call 911 if any headaches, dizziness, shortness of breath, chest pain, abdominal pain, bleeding, fevers, or worsening of medical condition. Patient was counseled about treatment plan, medications, possible side effects, patientverbalized understanding. All questions were answered to the best of my ability. This discharge took greater then 30 minutes in planning, reviewing documentation, counseling the patient, and discussing with other team members." JOAQUIM MOSELEY DO Apr 15, 2024 12:38
== END 2024-04-15 12:27 | disposition home or self-care (01) ==
LOC: UNDOADMOB 10:17 → LDRP 10:17 → UNDODISOB 12:27
PROVIDERS: ADMIT Obstetrics & Gynecology; ATTEND Obstetrics & Gynecology
DX: O24.419 Gestational diabetes mellitus in pregnancy, unspecified control (principal); O16.3 Unspecified maternal hypertension, third trimester; Z3A.34 34 weeks gestation of pregnancy; Z79.899 Other long term (current) drug therapy; Z98.890 Other specified postprocedural states
CPT/HCPCS: 59025; 76818; 81002; 82948; 82962; 94760; G0378

== ENCOUNTER 2024-04-19 09:04 | Observation (INO) | payer MEDICAID ==
--- NOTE | 2024-04-19 14:37 | DVH ---
BIOPHYSICAL PROFILE HISTORY: GDMA2/CHTN Comparison: 04/15/2024 TECHNIQUE: Multiple transabdominal real-time grayscale sonographic images through the gravid uterus of the fetus with duplex Doppler color flow and M-mode spectral analysis FINDINGS: BIOPHYSICAL PROFILE: breathing score: 2 movement score: 2 tone score: 2 Quantitative KATERYNA score: 2 (KATERYNA: 14.5 Cm.) Total score: 8 The cervix is not well-visualized Single live fetus in cephalic presentation. heart rate 123 beats per minute. Posterior fundal placenta without previa or abruption IMPRESSION: Biophysical profile score: 8
--- NOTE | 2024-04-19 21:29 | DVHDS2 ---
Physician Discharge Progress N Final Diagnosis: GDMA2/CHTN Operations or Procedures: Operations or Procedures NST/BPP/KATERYNA all WNL Condition on Discharge: Stable Disposition: Home Discharge Instructions: Diet: Regular Activity: No Restrictions, As Tolerated Follow Up/Referral: as scheduled Medications: N/A Follow Up Care: Discharge Statement: "Patient was advised to return to the ER or call 911 if any headaches, dizziness, shortness of breath, chest pain, abdominal pain, bleeding, fevers, or worsening of medical condition. Patient was counseled about treatment plan, medications, possible side effects, patientverbalized understanding. All questions were answered to the best of my ability. This discharge took greater then 30 minutes in planning, reviewing documentation, counseling the patient, and discussing with other team members." DAVID TIPTON DO Apr 19, 2024 21:29
== END 2024-04-19 15:38 | disposition home or self-care (01) ==
LOC: LDRP 13:15
PROVIDERS: ADMIT Obstetrics & Gynecology; ATTEND Obstetrics & Gynecology
DX: O24.419 Gestational diabetes mellitus in pregnancy, unspecified control (principal); O16.3 Unspecified maternal hypertension, third trimester; Z98.890 Other specified postprocedural states; Z79.899 Other long term (current) drug therapy; Z3A.35 35 weeks gestation of pregnancy
CPT/HCPCS: 59025; 76818; 81002; 82948; 82962; 94760; G0378

== ENCOUNTER 2024-04-22 06:46 | Observation (INO) | payer MEDICAID ==
[2024-04-22 10:42] LABS: Basophils # (auto) 0 10 ^3/uL (0-0.2); Basophils % (auto) 0.1 % (0.0-2.0); Eosinophils # (auto) 0.1 10 ^3/uL (0-0.8); Eosinophils % (auto) 1.1 % (0.0-7.0); Hematocrit 35.1 % (36.0-46.0); Hemoglobin 11.5 g/dL (12.2-16.2); Lymphocytes # (auto) 1.3 10 ^3/uL (0.4-5.4); Mean Corpuscular Hemoglobin 27.8 pg (28.0-32.0); Mean Corpuscular Hgb Conc. 32.8 g/dL (32.0-36.0); Mean Corpuscular Volume 84.8 fL (80.0-100.0); Monocytes # (auto) 0.6 10 ^3/uL (0-1.3); Monocytes % (auto) 8.6 % (0.0-12.0); Neutrophils # (auto) 5.4 10 ^3/uL (1.6-8.6); Neutrophils % (auto) 72.2 % (37.0-80.0); Nucleated Red Blood Cells % 0.1 %; Platelet Count (auto) 294 10^3/uL (140-450); Red Blood Cells 4.14 10^6/uL (4.0-5.20); Red Cell Distribution Width 14.9 % (11.8-14.3); White Blood Cell 7.5 10^3/uL (4.4-10.8)
[2024-04-22 11:01] LABS: INR 0.96 (0.9-1.15); Partial Thromboplastin Time 27.4 SEC (24.5-34.5); Prothrombin Time 10.2 sec (9.3-11.8)
[2024-04-22 11:02] LABS: Protein, Urine 122.2 mg/dL (1-14)
[2024-04-22 11:09] LABS: Alanine Aminotransferase 18 U/L (7-40); Albumin 4.1 g/dL (3.2-4.8); Alkaline Phosphatase 99 U/L (46-116); Anion Gap 11 (5-15); Aspartate Aminotransferase 30 U/L (13-40); BUN/Creatinine Ratio 9.4 (10.0-20.0); Bilirubin, Total 0.3 mg/dL (0.2-1.0); Calcium 9.9 mg/dL (8.7-10.4); Carbon Dioxide 21 mmol/L (20-31); Chloride 104 mmol/L (98-107); Glucose 87 mg/dL (74-106); Potassium 3.6 mmol/L (3.5-5.1); Total Protein 6.7 g/dL (5.7-8.2)
[2024-04-22 11:13] LABS: Urine Protein/Creatinine Ratio 0.46
[2024-04-22 11:16] LABS: Creatinine, Urine 266.3 mg/dL (30.0-125.0)
[2024-04-22 11:23] LABS: Blood Urea Nitrogen 6 mg/dL (9-23); Sodium 136 mmol/L (136-145)
--- NOTE | 2024-04-22 12:05 | DVHDS2 ---
Physician Discharge Progress N Final Diagnosis: gdm,chtn Operations or Procedures: Operations or Procedures nst,sono Condition on Discharge: Good Disposition: Home Discharge Instructions: Diet: Consistent carbohydrate Activity: No Restrictions, As Tolerated Medications: na Follow Up Care: Specialist: kassidy martinez Discharge Statement: "Patient was advised to return to the ER or call 911 if any headaches, dizziness, shortness of breath, chest pain, abdominal pain, bleeding, fevers, or worsening of medical condition. Patient was counseled about treatment plan, medications, possible side effects, patientverbalized understanding. All questions were answered to the best of my ability. This discharge took greater then 30 minutes in planning, reviewing document ation, counseling the patient, and discussing with other team members." Visit Coding OBGYN Date of Service: Apr 22, 2024 Billing Provider: JOAQUIM MOSELEY DO DEPUTY SHERIFF GENERALIST Common Visit Codes: [id number] OBS CARE (HIGH) JOAQUIM MOSELEY DO Apr 22, 2024 12:05
--- NOTE | 2024-04-22 13:41 | DVH ---
CLINICAL HISTORY: Gestational diabetes. COMPARISON: None TECHNIQUE: biophysical profile was performed. Transabdominal sonographic images of the fetus were obtained. FINDINGS: The fetus is in cephalic position. heart rate measures 133 BPM. Amniotic fluid index measures 14.2 cm. The placenta is fundal in position. BPP profile is an overall score of 8/8, with 2/2 points for breathing, with at least one episode of breathing over a 30 second duration during a 30 minute observation, 2/2 points for movements, with 3 or more discrete body or limb movements, 2/2 points for tone, with one or more episodes of extremity extension with return to flexion, or opening and closing of hand, and 2/2 points for amniotic fluid, with at least 1 pocket of amniotic fluid that measures 2 cm in 2 perpendicular planes. IMPRESSION: BPP score of 8/8. EEN DAMIAN
== END 2024-04-22 11:46 | disposition home or self-care (01) ==
LOC: LDRP 08:48 → EDUNIT# 08:48
PROVIDERS: ADMIT Obstetrics & Gynecology; ATTEND Obstetrics & Gynecology
DX: O24.419 Gestational diabetes mellitus in pregnancy, unspecified control (principal); O13.3 Gestational [pregnancy-induced] hypertension without significant proteinuria, third trimester; O62.9 Abnormality of forces of labor, unspecified; Z3A.35 35 weeks gestation of pregnancy; Z79.899 Other long term (current) drug therapy
CPT/HCPCS: 36415; 59025; 76818; 80053; 81002; 82570; 82948; 82962; 84156; 84550; 85025; 85610; 85730; 94760; G0378

== ENCOUNTER 2024-04-26 07:21 | Observation (INO) | payer MEDICAID ==
[2024-04-26 10:23] LABS: Protein, Urine 104.4 mg/dL (1-14)
[2024-04-26 10:26] LABS: Creatinine, Urine 203.85 mg/dL (30.0-125.0); Urine Protein/Creatinine Ratio 0.51
[2024-04-26 10:27] LABS: Urine Bacteria FEW /hpf (None Seen); Urine Blood Negative /uL (Negative); Urine Color Yellow (Yellow); Urine Mucus FEW (None Seen); Urine Protein, UAD 1+ (Negative); Urine Specific Gravity 1.019 (1.001-1.035); Urine Squamous Epithelial Cell MOD /hpf (<5); Urine Urobilinogen 2 mg/dL (Negative); Urine WBC 3 /HPF (0-5); Urine pH 6.5 (5.0-9.0)
[2024-04-26 10:33] LABS: Urine Clarity Hazy (Clear)
--- NOTE | 2024-04-26 10:47 | DVH ---
BIOPHYSICAL PROFILE HISTORY: CHTN/GDMA2 TECHNIQUE: Multiple transabdominal real-time grayscale sonographic images through the gravid uterus of the fetus with duplex Doppler color flow and M-mode spectral analysis FINDINGS: BIOPHYSICAL PROFILE: breathing score: 2 movement score: 2 tone score: Quantitative KATERYNA score: 2 (KATERYNA: 12.2 Cm.) Total score: 8/8 The cervix is not visualized. Single live fetus in cephalic presentation. heart rate 137 beats per minute. Fundal placenta without previa or abruption IMPRESSION: 1. Single intrauterine with cardiac activity measuring 137 beats per minute. Biophysical pr ofile score: 8/8
[2024-04-26 10:52] LABS: Protein, Urine 9.3 mg/dL (1-14)
[2024-04-26 10:54] LABS: 24 Hr. Total Protein, Urine 748.6 mg/24 Hr (<149.1)
--- NOTE | 2024-04-26 11:05 | DVHDS2 ---
Physician Discharge Progress N Final Diagnosis: IUP 36 wk, CHTN, GDMA2 Secondary Diagnosis: NST/BPP/KATERYNA Operations or Procedures: Operations or Procedures NST/BPP/ KATERYNA Accucheck all WNL Mild contractions, not symptomatic, declined SVE NOT in labor Commentary: Commentary 24h urine protein 748 mg BPs all NORMAL, asymptomatic Condition on Discharge: Guarded Disposition: Home Discharge Instructions: Diet: Regular Activity: No Restrictions, As Tolerated Follow Up/Referral: 2x/wk NST/BPP/KATERYNA once week Dr. Pearce F/U Medications: No new meds Follow Up Care: Discharge Statement: "Patient was advised to return to the ER or call 911 if any headaches, dizziness, shortness of breath, chest pain, abdominal pain, bleeding, fevers, or worsening of medical condition. Patient was counseled about treatment plan, medications, possible side effects, patientverbalized understanding. All questions were answered to the best of my ability. This discharge took greater then 30 minutes in planning, reviewing documentation, counseling the patient, and discussing with other team members." Visit Coding OBGYN Date of Service: Apr 26, 2024 Billing Provider: DAVID TIPTON DO PERSONALIZATION SPECIALIST Common Visit Codes: 12306-CMM/OBS SAME DATE (HIGH) PERSONALIZATION SPECIALIST Procedure Codes: 81134-70- NON-STRESS TEST DAVID TIPTON DO Apr 26, 2024 11:05
== END 2024-04-26 11:05 | disposition home or self-care (01) ==
LOC: LDRP 08:18 → UNDOADMOB 08:18 → LDRP 08:26 → UNDODISOB 11:05
PROVIDERS: ADMIT Obstetrics & Gynecology; ATTEND Obstetrics & Gynecology
DX: O13.3 Gestational [pregnancy-induced] hypertension without significant proteinuria, third trimester (principal); O24.419 Gestational diabetes mellitus in pregnancy, unspecified control; Z3A.36 36 weeks gestation of pregnancy; Z98.890 Other specified postprocedural states; Z79.899 Other long term (current) drug therapy
CPT/HCPCS: 76818; 81001; 82570; 84156; G0378

== ENCOUNTER 2024-04-30 06:53 | Observation (INO) | payer MEDICAID ==
--- NOTE | 2024-04-30 12:19 | DVH ---
BIOPHYSICAL PROFILE HISTORY: GDMA2, chronic HTN TECHNIQUE: Multiple transabdominal real-time grayscale sonographic images through the gravid uterus of the fetus with duplex Doppler color flow and M-mode spectral analysis FINDINGS: BIOPHYSICAL PROFILE: breathing score: 2 movement score: 2 tone score: 2 Quantitative KATERYNA score: 2 (KATERYNA: 11 Cm.) Total score: 8 The cervix was not seen Single live fetus in cephalic presentation. heart rate 154 beats per minute. Grade II posterior fundal placenta without previa or abruption IMPRESSION: Biophysical profile score: 8/8
[2024-04-30 12:45] LABS: Urine Bacteria FEW /hpf (None Seen); Urine Blood Negative /uL (Negative); Urine Clarity Clear (Clear); Urine Color Light-Yellow (Yellow); Urine Protein, UAD Negative (Negative); Urine Specific Gravity 1.006 (1.001-1.035); Urine Squamous Epithelial Cell FEW /hpf (<5); Urine Urobilinogen Normal (Negative); Urine WBC 1 /HPF (0-5)
[2024-04-30 12:53] LABS: Protein, Urine 6.3 mg/dL (1-14)
[2024-04-30 12:56] LABS: Creatinine, Urine 35.94 mg/dL (30.0-125.0); Urine Protein/Creatinine Ratio 0.18
--- NOTE | 2024-04-30 13:24 | DVHDS2 ---
Physician Discharge Progress N Final Diagnosis: gdm,chtn Operations or Procedures: Operations or Procedures nst,sono 36+wks Condition on Discharge: Good Disposition: Home Discharge Instructions: Diet: Consistent carbohydrate Activity: No Restrictions, As Tolerated Medications: na Follow Up Care: Specialist: 3d Discharge Statement: "Patient was advised to return to the ER or call 911 if any headaches, dizziness, shortness of breath, chest pain, abdominal pain, bleeding, fevers, or worsening of medical condition. Patient was counseled about treatment plan, medications, possible side effects, patientverbalized understanding. All questions were answered to the best of my ability. This discharge took greater then 30 minutes in planning, reviewing docu mentation, counseling the patient, and discussing with other team members." Visit Coding OBGYN Date of Service: Apr 30, 2024 Billing Provider: JOAQUIM MOSELEY DO LACTATION SPECIALIST Common Visit Codes: [id number] OBS CARE (HIGH) LACTATION SPECIALIST Procedure Codes: 76466-77- NON-STRESS TEST JOAQUIM MOSELEY DO Apr 30, 2024 13:24
[2024-04-30 13:35] LABS: Basophils # (auto) 0 10 ^3/uL (0-0.2); Basophils % (auto) 0.2 % (0.0-2.0); Eosinophils # (auto) 0.1 10 ^3/uL (0-0.8); Eosinophils % (auto) 1.1 % (0.0-7.0); Hemoglobin 12.1 g/dL (12.2-16.2); Lymphocytes # (auto) 1.6 10 ^3/uL (0.4-5.4); Lymphocytes % (auto) 20.2 % (10.0-50.0); Mean Corpuscular Hemoglobin 27.3 pg (28.0-32.0); Mean Corpuscular Hgb Conc. 32.6 g/dL (32.0-36.0); Mean Corpuscular Volume 83.6 fL (80.0-100.0); Monocytes # (auto) 0.8 10 ^3/uL (0-1.3); Monocytes % (auto) 9.9 % (0.0-12.0); Neutrophils # (auto) 5.5 10 ^3/uL (1.6-8.6); Neutrophils % (auto) 68.6 % (37.0-80.0); Nucleated Red Blood Cells % 0.4 %; Platelet Count (auto) 280 10^3/uL (140-450); Red Blood Cells 4.42 10^6/uL (4.0-5.20); Red Cell Distribution Width 14.8 % (11.8-14.3); White Blood Cell 8.1 10^3/uL (4.4-10.8)
[2024-04-30 13:46] LABS: Alanine Aminotransferase 20 U/L (7-40); Albumin 4.3 g/dL (3.2-4.8); Alkaline Phosphatase 111 U/L (46-116); Anion Gap 9 (5-15); Aspartate Aminotransferase 34 U/L (13-40); Bilirubin, Total 0.5 mg/dL (0.2-1.0); Calcium 10.1 mg/dL (8.7-10.4); Carbon Dioxide 23 mmol/L (20-31); Chloride 104 mmol/L (98-107); Glucose 78 mg/dL (74-106); Potassium 4.3 mmol/L (3.5-5.1); Total Protein 6.8 g/dL (5.7-8.2); Uric Acid 7.4 mg/dL (3.1-7.8)
[2024-04-30 13:47] LABS: Blood Urea Nitrogen 8 mg/dL (9-23); Sodium 136 mmol/L (136-145)
[2024-04-30 14:04] LABS: Partial Thromboplastin Time 28.7 SEC (24.5-34.5); Prothrombin Time 10.6 sec (9.3-11.8)
== END 2024-04-30 13:17 | disposition home or self-care (01) ==
LOC: LDRP 11:27
PROVIDERS: ADMIT Obstetrics & Gynecology; ATTEND Obstetrics & Gynecology
DX: O24.419 Gestational diabetes mellitus in pregnancy, unspecified control (principal); O16.3 Unspecified maternal hypertension, third trimester; Z3A.36 36 weeks gestation of pregnancy; Z79.899 Other long term (current) drug therapy
CPT/HCPCS: 36415; 59025; 76818; 80053; 81001; 81002; 82570; 84156; 84550; 85025; 85610; 85730; 94760; G0378

== ENCOUNTER 2024-05-04 12:37 | Observation (INO) | payer MEDICAID ==
--- NOTE | 2024-05-04 13:34 | DVH ---
BIOPHYSICAL PROFILE HISTORY: Chronic hypertension, GDMA2 Comparison Study: None TECHNIQUE: Multiple real-time grayscale sonographic images through the gravid uterus of the fetus wi th duplex Doppler color flow and M-mode spectral analysis FINDINGS: BIOPHYSICAL PROFILE: breathing score: 2 movement score: 2 tone score: 2 Quantitative KATERYNA score: 2 (KATERYNA: 11.4 Cm.) Total score: 8 The cervix was not visualized Single live fetus in cephalic presentation. heart rate 127 beats per minute. Fundal placenta without previa or abruption IMPRESSION: Biophysical profile score: 8
--- NOTE | 2024-05-04 19:53 | DVHDS2 ---
Physician Discharge Progress N Final Diagnosis: testing for CHTN, GDMA2 Operations or Procedures: Operations or Procedures 23yo IUP@37.3wks, +FM, denies UCs/LOF/VB/BAÑUELOS/vision changes/RUQ pain. VSS, normotensive NST reactive FKC/PreE/labor precautions reviewed. Laboratory Tests Test 05/04/24 13:42 Range/Units POC Glucose 96 70-106 mg/dl Other Interventions Other Interventions [place] [address] Ph: [phone] DIAGNOSTIC IMAGING Diagnostic Imaging Report : [id number] Signed PATIENT: BETH SOTELO ACCT: [id number] UNIT: [id number] : 2000 LOC: [facility] ROOM / BED: TRIAGE1 / A AGE / SEX: 23 / F ADM STATUS: ADM IN SERVICE 1250 ORDERING PHYSICIAN: FAITH STREET CNM PROCEDURE(s): BPP - BIOPHYSICAL PROFILE REASON: Chronic hypertension, GDMA2 ORDER NUMBER(s): [id number], ACCESSION NUMBER(s): [id number] BIOPHYSICAL PROFILE HISTORY: Chronic hypertension, GDMA2 Comparison Study: None TECHNIQUE: Multiple real-time grayscale sonographic images through the gravid uterus of the fetus with duplex Doppler color flow and M-mode spectral analysis FINDINGS: BIOPHYSICAL PROFILE: breathing score: 2 movement score: 2 tone score: 2 Quantitative KATERYNA score: 2 (KATERYNA: 11.4 Cm.) Total score: 8 The cervix was not visualized Single live fetus in cephalic presentation. heart rate 127 beats per minute. Fundal placenta without previa or abruption IMPRESSION: Biophysical profile score: 8 ATED BY: ZAN HERNANDEZ MD DICTATED DATE/TIME: 05/04/241331 SIGNED BY: ZAN HERNANDEZ MD SIGNED DATE/TIME: 05/04/241331 CC: Condition on Discharge: Stable Disposition: Home Discharge Instructions: Diet: See Comment Diet comment: Continue ADA diet Activity: No Restrictions, As Tolerated Follow Up/Referral: Please return on Friday for scheduled IOL Medications: see med list Follow Up Care: Specialist: f/u for scheduled IOL on 05/07/24 Discharge Statement: "Patient was advised to return to the ER or call 911 if any headaches, dizzi ness, shortness of breath, chest pain, abdominal pain, bleeding, fevers, or worsening of medical condition. Patient was counseled about treatment plan, medications, possible side effects, patientverbalized understanding. All questions were answered to the best of my ability. This discharge took greater then 30 minutes in planning, reviewing documentation, counseling the patient, and discussing with other team members." Visit Coding OBGYN Date of Service: May 04, 2024 Billing Provider: FAITH STREET CNM H[employer] LANGUAGE TUTOR Common Visit Codes: 34398-XUMIERG OBS CARE (HIGH) H[employer] LANGUAGE TUTOR Procedure Codes: 83295-75- NON-STRESS TEST FAITH STREET CNM May 04, 2024 19:53
== END 2024-05-04 14:09 | disposition home or self-care (01) ==
LOC: UNDOADMOB 12:37 → LDRP 12:37
PROVIDERS: ADMIT Obstetrics & Gynecology; ATTEND Obstetrics & Gynecology
DX: O16.3 Unspecified maternal hypertension, third trimester (principal); O24.419 Gestational diabetes mellitus in pregnancy, unspecified control; Z98.890 Other specified postprocedural states; Z79.899 Other long term (current) drug therapy; Z3A.37 37 weeks gestation of pregnancy
CPT/HCPCS: 76818; 82962; G0378; 59025; 81002; 94762

== ENCOUNTER 2024-05-06 13:36 | Observation (INO) | payer MEDICAID ==
[2024-05-06 14:32] LABS: Fern Testing Negative
--- NOTE | 2024-05-06 15:46 | DVHDS2 ---
Physician Discharge Progress N Final Diagnosis: 37wks rom ruled out Operations or Procedures: Operations or Procedures nst 37wks,sono Condition on Discharge: Good Disposition: Home Discharge Instructions: Diet: Regular Activity: No Restrictions, As Tolerated Medications: na Follow Up Care: Specialist: 1d Discharge Statement: "Patient was advised to return to the ER or call 911 if any headaches, dizziness, shortness of breath, chest pain, abdominal pain, bleeding, fevers, or worsening of medical condition. Patient was counseled about treatment plan, medications, possible side effects, patientverbalized understanding. All questions were answered to the best of my ability. This discharge took greater then 30 minutes in planning, reviewing documentati on, counseling the patient, and discussing with other team members." Visit Coding OBGYN Date of Service: May 06, 2024 Billing Provider: JOAQUIM MOSELEY DO LAN/WAN ENGINEER Common Visit Codes: 47066-MRY/OBS DISCH DAY >30MIN LAN/WAN ENGINEER Procedure Codes: 91510-59- NON-STRESS TEST JOAQUIM MOSELEY DO May 06, 2024 15:46
== END 2024-05-06 15:02 | disposition home or self-care (01) ==
LOC: LDRP 13:36
PROVIDERS: ADMIT Obstetrics & Gynecology; ATTEND Obstetrics & Gynecology
DX: O62.9 Abnormality of forces of labor, unspecified (principal); Z3A.37 37 weeks gestation of pregnancy; Z79.899 Other long term (current) drug therapy; Z98.890 Other specified postprocedural states
CPT/HCPCS: 59025; 81002; 82962; 84112; 94760; G0378; Q0114

== ENCOUNTER 2024-05-07 07:38 | Inpatient (IN) | payer MEDICAID ==
[~2024-05-07] VITALS: Ht 172.7 cm; Wt 117.9 kg
[2024-05-07] MEDS ORDERED: NALBUPHINE HCL 10 MG/1ml INJECTION IM PRN (22:00)
[2024-05-07] MEDS ORDERED: LIDOCAINE 2%HCL (LOCAL ANESTH.) INJ 20ML MDV IJ PRN (22:00)
[2024-05-07] MEDS ORDERED: ACCU-CHEK COMFORT CURVE STRIP VI SCH (22:00)
[2024-05-07] MEDS ORDERED: NALBUPHINE HCL 10 MG/1ml INJECTION IV PRN (22:00)
[2024-05-07 22:41] LABS: Basophils # (auto) 0 10 ^3/uL (0-0.2); Basophils % (auto) 0.2 % (0.0-2.0); Eosinophils # (auto) 0.1 10 ^3/uL (0-0.8); Hematocrit 34.5 % (36.0-46.0); Hemoglobin 11.6 g/dL (12.2-16.2); Lymphocytes # (auto) 1.6 10 ^3/uL (0.4-5.4); Lymphocytes % (auto) 20.8 % (10.0-50.0); Mean Corpuscular Hemoglobin 28.1 pg (28.0-32.0); Mean Corpuscular Hgb Conc. 33.6 g/dL (32.0-36.0); Mean Corpuscular Volume 83.7 fL (80.0-100.0); Monocytes # (auto) 0.7 10 ^3/uL (0-1.3); Monocytes % (auto) 8.8 % (0.0-12.0); Neutrophils # (auto) 5.4 10 ^3/uL (1.6-8.6); Neutrophils % (auto) 69.2 % (37.0-80.0); Nucleated Red Blood Cells % 0.1 %; Platelet Count (auto) 297 10^3/uL (140-450); Red Blood Cells 4.12 10^6/uL (4.0-5.20); Red Cell Distribution Width 15.4 % (11.8-14.3); White Blood Cell 7.8 10^3/uL (4.4-10.8)
[2024-05-07 22:56] LABS: Protein, Urine 24.4 mg/dL (1-14)
[2024-05-07 22:58] LABS: Barbiturate Scree,Urine Neg (NEGATIVE); Benzodiazephine Screen, Urine Neg (NEGATIVE); Cannabinoid Screen, Urine Neg (NEGATIVE); Cocaine Screen, Urine Neg (NEGATIVE); Creatinine, Urine 68.43 mg/dL (30.0-125.0); Opiate Scree,Urine Neg (NEGATIVE); Phencyclidine Screen, Urine Neg (NEGATIVE); Urine Protein/Creatinine Ratio 0.36
[2024-05-07 23:00] LABS: Alanine Aminotransferase 19 U/L (7-40); Albumin 4.3 g/dL (3.2-4.8); Anion Gap 12 (5-15); Aspartate Aminotransferase 33 U/L (13-40); BUN/Creatinine Ratio 12.7 (10.0-20.0); Calcium 9.5 mg/dL (8.7-10.4); Carbon Dioxide 21 mmol/L (20-31); Chloride 103 mmol/L (98-107); Glucose 93 mg/dL (74-106); Potassium 3.6 mmol/L (3.5-5.1); Uric Acid 7.1 mg/dL (3.1-7.8)
[2024-05-07 23:00] LABS: Urine Bacteria FEW /hpf (None Seen); Urine Blood Negative /uL (Negative); Urine Clarity Clear (Clear); Urine Color Light-Yellow (Yellow); Urine Protein, UAD TRACE (Negative); Urine Specific Gravity 1.009 (1.001-1.035); Urine Squamous Epithelial Cell FEW /hpf (<5); Urine Urobilinogen 2 mg/dL (Negative); Urine WBC 1 /HPF (0-5); Urine pH 6.5 (5.0-9.0)
[2024-05-07 23:01] LABS: Bilirubin, Total 0.3 mg/dL (0.2-1.0); INR 0.97 (0.9-1.15); Partial Thromboplastin Time 27.6 SEC (24.5-34.5); Prothrombin Time 10.3 sec (9.3-11.8); Total Protein 6.9 g/dL (5.7-8.2)
[2024-05-07 23:05] LABS: Blood Urea Nitrogen 8 mg/dL (9-23); Sodium 136 mmol/L (136-145)
[2024-05-07 23:06] LABS: Alkaline Phosphatase 117 U/L (46-116)
[2024-05-07 23:07] LABS: Amphetamine Screen, Urine Neg (NEGATIVE)
[2024-05-07 23:59] VITALS: BP 109/60; PULSE 108; RESP 16; TEMP 98.5; O2SAT 97
[2024-05-08] MEDS: miSOPROStol 50 MCG per PRE-CUT 1/2 TAB PO PRN (02:19)
[2024-05-08] MEDS: PHISODERM TOP SOLN 240ML BTL TOP PRN (02:21)
[2024-05-08] MEDS: DERMOPLAST 60ML BOTTLE TOP PRN (02:21)
[2024-05-08] MEDS: WITCH HAZEL-GLYCERIN PAD TOP PRN (02:21)
--- NOTE | 2024-05-08 02:49 | DVHHP ---
ADMIT DATE: 05/07/2024 CHIEF COMPLAINT: Here for induction of labor. HISTORY OF PRESENT ILLNESS: The patient is a 23-year-old 2, para 1, with gestational age of 38+ weeks, admitted for induction of labor secondary to chronic hypertension and GDMA2. The patient denies having any rupture of membrane or vaginal bleeding. PAST MEDICAL HISTORY: Hypertension. PAST SURGICAL HISTORY: None. SOCIAL HISTORY: None. FAMILY HISTORY: None. OBSTETRIC AND GYNECOLOGIC HISTORY: One normal vaginal delivery. Blood type A positive, GBS unknown, rubella immune. REVIEW OF SYSTEMS: Consistent with HPI. PHYSICAL EXAMINATION: VITAL SIGNS: Stable, afebrile. HEENT: Within normal limits. CARDIOVASCULAR: Regular rate and rhythm. LUNGS: Clear to auscultation. BREASTS: Symmetrical. No masses. ABDOMEN: Gravid. Positive heart. PELVIC: 1 cm, 50%, -3. EXTREMITIES: No clubbing, cyanosis or edema. IMPRESSION: * Intrauterine at 38+ weeks, with chronic hypertension. * Gestational diabetes mellitus A2. * Morbid obesity. PLAN: Induction of labor. We will proceed with Cytotec, cover for GBS. Expectant vaginal delivery. The patient will be managed at 7:[address] Larry, on-call physician. Sandra Pearce DO MZ/HEM TID: [id number] RECEIPT: [id number]
[2024-05-08] MEDS ORDERED: LACT. RINGERS/OXYTOCIN 20UNITS 500 ML IV ONE (11:30)
[2024-05-08] MEDS ORDERED: ePHEDrine SULFATE 50 MG/ML AMP IV ONE (12:30)
[2024-05-08] MEDS ORDERED: LACTATED RINGER'S 500 ML IV ONE (12:30)
[2024-05-08] MEDS: LACTATED RINGER'S 1,000 ML IV SCH (12:36)
[2024-05-08] MEDS: fentaNYL CITRATE 100 MCG/2 ML VL IV ONE (15:10)
[2024-05-08] MEDS: ROPIVACAINE HCL 200 ML ONE (15:20)
--- NOTE | 2024-05-08 15:42 | EPIDURAL ---
Anesthesia Procedural Note - Epidural Informed consent obtained?: Yes Medication Administered: Fentanyl 100 mcg Sterile prept drape: Yes Spinal level of insertion: L4-L5 Test dose of lidocaine & Epine: Negative Infusion started: Yes Start time: 14:51 End time: 15:12 Procedure description Procedure description: Called for labor analgesia. Patient is at 38 weeks, requesting epidural prior to initiation of pitocin augmentation. Chart reviewed, history taken and patient examined at 1451 (BP 124/65 HR 90 spO2 98). Informed consent for CSE obtained. Sitting position, sterile prep and drape. Time out done at 1453. Epidural needle placed with LISS ay 7cm. 25G pencil point spinal needle +clear CSF. 15mcg fentanyl given IT at 1455 (BP 131/77 HR 94 spO2 99). Epidural catheter secured at 13cm. Aspiration and test dose (3cc 1.5% lido with epi) negative at 1438 (BP 131/80 HR 88 spO2 98). 85mcg fentanyl given via epidural catheter at 1501 (BP 125/76 HR 88 spO2 99). Patient reports good pain relief. 0.2% ropivacaine infusion started at 1512 (BP 127/82 HR 85 spO2 99). Will follow as needed. ELEUTERIO BETANCUR MD May 08, 2024 15:42
[2024-05-08] MEDS: LACT. RINGERS/OXYTOCIN 20UNITS 1,000 ML IV SCH (16:04)
[2024-05-08] MEDS ORDERED: ONDANSETRON HCL 4 MG/2 ML VIAL IV PRN (18:15)
[2024-05-09] MEDS ORDERED: LIDOCAINE 2%HCL (LOCAL ANESTH.) INJ 20ML MDV ONE (06:37)
[2024-05-09] MEDS: LACT. RINGERS/OXYTOCIN 20UNITS 500 ML IV ONE (06:44)
--- NOTE | 2024-05-09 07:08 | LDN2 ---
Labor and Delivery Note Date 05/09/24 Age 23 2 Para 1 AB 0 EDC 38+ wks EGA 38+ we induced her Diagnosis HTN , GDMA2 Vaginal Delivery: VTX Vacuum Assisted: No Placenta: Spontaneous (3 vessel intact) Sex: Male Weight pnd Apgars 8/9 Nuchal Cord Transected: Yes (loose x1) Amniotic Fluid: Clear Anesthesia Epidural Chris CRISOSTOMO Episiotomy: No Extension: Yes (1st degree ant and posterior) Repaired with 2-0 chromic EBL 450cc Labs Blood Bank 05/07/24 22:23: Blood Type A POSITIVE Conditions guarded Cloud Operations Engineer none present JITENDRA ORR DO May 09, 2024 07:08
[2024-05-09] MEDS ORDERED: ONDANSETRON HCL 4 MG/2 ML VIAL IV PRN (10:00)
[2024-05-09] MEDS ORDERED: ACETAMINOPHEN 325 MG TAB PO PRN (10:00)
[2024-05-09] MEDS: IBUPROFEN 600 MG TAB PO PRN (10:43)
[2024-05-09 15:00] VITALS: BP 132/71; PULSE 100; RESP 17; TEMP 98.1; O2SAT 98
[2024-05-09 19:00] VITALS: BP 120/69; PULSE 95; RESP 16; TEMP 97.7; O2SAT 96
[2024-05-09] MEDS: ACCU-CHEK COMFORT CURVE STRIP VI SCH (22:00)
[2024-05-09] MEDS: DOCUSATE SOD 100 MG CAP PO SCH (22:07)
[2024-05-09 23:00] VITALS: BP 113/65; PULSE 94; RESP 17; TEMP 98.2; O2SAT 97
[2024-05-10 03:00] VITALS: BP 129/72; PULSE 85; RESP 18; TEMP 98.1; O2SAT 96
--- NOTE | 2024-05-10 05:45 | DVHPN2 ---
Chief Complaints Patient reports: No new complaints, Feels better, Other (minimal lochia , BL sugars controlled , BP stable) Nursing reports: No new complaints, No abdominal pain, No chest pain, No dizziness, No cough Objective Vitals Vital Signs Date Time Temp Pulse Resp B/P (MAP) Pulse Ox O2 Delivery O2 Flow Rate FiO2 05/10/24 03:00 98.1 85 18 129/72 (91) 96 98.1 05/09/24 19:00 Room Air Medications Current Medications Medications (Trade) Dose Ordered Sig/Suzanna Route PRN Reason Start Time Stop Time Status Last Admin Acetaminophen (Tylenol Tablet) 650 mg Q4HP PRN PO MILD PAIN (1-3 PAIN SCALE) 05/09/24 10:00 Diagnostic Test (Pha) (Accu-Chek Comfort Curve T) 1 strip ACHS 05/09/24 22:00 05/09/24 22:00 Docusate Sodium (Colace Capsule) 200 mg HS PO 05/09/24 22:00 05/09/24 22:07 Ibuprofen (Motrin Tablet) 600 mg Q6HP PRN PO MODERATE PAIN (4-6 PAIN SCALE) 05/09/24 10:00 05/09/24 19:16 Ondansetron HCl (Zofran) 4 mg Q4HP PRN IV NAUSEA / VOMITING 05/09/24 10:00 General: Normal Head/Eyes: Normal Neck: Normal Lungs: Normal Cardiovascular: Normal Abdominal: Normal (Uterus 15 week size) Musculoskeletal: Normal Extremities: Normal Neurological: Normal Studies Laboratory Tests 05/07/24 22:23 Test 05/07/24 22:23 Range/Units Serum Glucose 93 74-106 mg/dL Ass/Plan Assessment Post day one GDM HTN Plan See DC summary , See DC orders JITENDRA ORR DO May 10, 2024 05:44
--- NOTE | 2024-05-10 05:50 | DVHDS2 ---
Discharge Summary Discharge Summary Date of Admission: May 07, 2024 Date of Discharge: May 10, 2024 Discharge Diagnosis: GDM HTN induction Procedures none Brief History: GDM HTN induction controlled Hospital Course un eventful induction and Physical exam on Discharge AAO x3, Afebrile VSS, Sugars controlled BP controlled, LCTA , HRRR, ABD soft + BS uterus 15 week size firm, Ext no pain or edema Discharge Disposition: Home Discharge Instructions routine DM HTN post Instructions given. Medications resume home meds and diet Follow up 2 weeks or prn with primary EARLY INTERVENTION SPECIALIST Discharge Care Plan Instructions See pt D/C handouts Risk factors Proper handwashing Establish goals see dc orders Visit Coding OBGYN Date of Service: May 10, 2024 Billing Provider: JITENDRA ORR DO EARLY INTERVENTION SPECIALIST Common Visit Codes: PROCEDURE ONLY EARLY INTERVENTION SPECIALIST Procedure Codes: 57986-OBW DELIVERY ONLY JITENDRA ORR DO May 10, 2024 05:50
[2024-05-10 07:22] VITALS: BP 121/71; PULSE 79; RESP 18; TEMP 98.3; O2SAT 96
[2024-05-11 04:07] LABS: RPR Non Reactive (Non Reactive)
== END 2024-05-10 11:58 | disposition home or self-care (01) | DRG 560 ==
LOC: PREOBSVTOIN 07:39 → LDRP 21:50
PROVIDERS: ADMIT Obstetrics & Gynecology; ATTEND Obstetrics & Gynecology
PROC: 3E0R3BZ Introduction of Anesthetic Agent into Spinal Canal, Percutaneous Approach (ICD-10-PCS; 2024-05-08)
PROC: 00HU33Z Insertion of Infusion Device into Spinal Canal, Percutaneous Approach (ICD-10-PCS; 2024-05-08)
PROC: 10E0XZZ Delivery of Products of Conception, External Approach (ICD-10-PCS; principal; 2024-05-09)
PROC: 0HQ9XZZ Repair Perineum Skin, External Approach (ICD-10-PCS; 2024-05-09)
DX: O16.4 Unspecified maternal hypertension, complicating childbirth (principal); Z37.0 Single live birth; O24.425 Gestational diabetes mellitus in childbirth, controlled by oral hypoglycemic drugs; E66.01 Morbid (severe) obesity due to excess calories; O69.81X0 Labor and delivery complicated by cord around neck, without compression, not applicable or unspecified; O99.214 Obesity complicating childbirth; Z3A.38 38 weeks gestation of pregnancy; O70.0 First degree perineal laceration during delivery
CPT/HCPCS: 36415; 59025; 59409; 62282; 80053; 80307; 81001; 81002; 82570; 82948; 82962; 84156; 84550; 85025; 85610; 85730; 86592; 86780; 86803; 86850; 86900; 86901; 94760; 96360; 96361; 96365; 96366; G0378; J2590

== ENCOUNTER 2025-03-06 15:42 | Observation (INO) | payer MEDICAID ==
[~2025-03-06] VITALS: Ht 172.7 cm; Wt 114.8 kg
[2025-03-06] MEDS ORDERED: LACTATED RINGER'S 1,000 ML IV ONE (16:15)
[2025-03-06 16:40] LABS: Hematocrit 33.4 % (36.0-46.0); Hemoglobin 10.8 g/dL (12.2-16.2); Mean Corpuscular Hemoglobin 27.1 pg (28.0-32.0); Mean Corpuscular Volume 83.9 fL (80.0-100.0); Nucleated Red Blood Cells % 0.0 %
[2025-03-06 16:53] LABS: Alanine Aminotransferase 12 U/L (7-40); Albumin 4.0 g/dL (3.2-4.8); Alkaline Phosphatase 80 U/L (46-116); Anion Gap 11 (5-15); Calcium 9.2 mg/dL (8.7-10.4); Carbon Dioxide 24 mmol/L (20-31); Chloride 103 mmol/L (98-107); Glucose 85 mg/dL (74-106); Sodium 138 mmol/L (136-145); Total Protein 7.2 g/dL (5.7-8.2)
[2025-03-06 16:54] LABS: BUN/Creatinine Ratio 8.5 (10.0-20.0); Bilirubin, Total 0.4 mg/dL (0.2-1.0); Blood Urea Nitrogen < 5 mg/dL (9-23); Potassium 3.3 mmol/L (3.5-5.1)
--- NOTE | 2025-03-06 17:00 | DVH ---
INDICATION: LUQ pain TECHNIQUE: Multiple real-time sonographic images of the abdomen were obtained. COMPARISON: None FINDINGS: The liver is increased in echogenicity. No intrahepatic biliary ductal dilatation is noted. No hepatic masses were seen. Liver measures 20 cm. The gallbladder wall measures 2.3 mm and is normal in size. Small stones and sludge are seen within the gallbladder.. The common duct measures 6.1 mm and is normal in size. No pericholecystic fluid is noted. The right kidney measures 11.8 cm and is normal in size. The right renal echogenicity, contour and cortical thickness are within normal limits. No hydronephrosis or large masses are seen. The left kidney measures 12.6 cm and is normal in size. The left renal echogenicity, contour, and cortical thickness are within normal limits. No hydronephrosis or large masses are seen. IMPRESSION: 1. Hepatic steatosis and hepatomegaly. 2. Cholelithiasis.
--- NOTE | 2025-03-08 08:03 | DVHDS2 ---
Physician Discharge Progress N Final Diagnosis: cramping 22 wks Operations or Procedures: Operations or Procedures nst,sono Condition on Discharge: Good Disposition: Home Discharge Instructions: Diet: Cardiac 2g Na,low cholest Activity: No Restrictions, As Tolerated Medications: na Follow Up Care: Specialist: 1d Discharge Statement: "Patient was advised to return to the ER or call 911 if any headaches, dizziness, shortness of breath, chest pain, abdominal pain, bleeding, fevers, or worsening of medical condition. Patient was counseled about treatment plan, medications, possible side effects, patientverbalized understanding. All questions were answered to the best of my ability. This discharge took greater then 30 minutes in planning, reviewing doc umentation, counseling the patient, and discussing with other team members." Visit Coding OBGYN Date of Service: Mar 07, 2025 Billing Provider: JOAQUIM MOSELEY DO WATER SYSTEMS ENGINEER Common Visit Codes: 13255-LLMGVUX OBS CARE (HIGH) WATER SYSTEMS ENGINEER Procedure Codes: 34999-02- NON-STRESS TEST JOAQUIM MOSELEY DO Mar 08, 2025 08:03
== END 2025-03-06 17:09 | disposition home or self-care (01) ==
LOC: LDRP 15:42
PROVIDERS: ADMIT Obstetrics & Gynecology; ATTEND Obstetrics & Gynecology
DX: O26.892 Other specified pregnancy related conditions, second trimester (principal); R10.12 Left upper quadrant pain; Z3A.22 22 weeks gestation of pregnancy; Z79.899 Other long term (current) drug therapy; Z98.890 Other specified postprocedural states
CPT/HCPCS: 36415; 76705; 80053; 81002; 85025; 94760; 96360; 96361; A4649; G0378